=== PATIENT | female | born 1990 ===

== ENCOUNTER 2017-07-01 13:38 | Emergency (ER) | payer OTHER ==
[2017-07-01 13:38] VITALS: BMI 21.0
[2017-07-01 13:49] VITALS: BP 110/71; RESP 19; TEMP 97; O2SAT 100
--- NOTE | 2017-07-01 14:09 | ED PDOC ---
HPI: Female Pain Time Seen by Provider: 07/01/17 13:54 Chief Complaint (Nursing): Female Genitourinary Chief Complaint (Provider): Dysuria History Per: Patient History/Exam Limitations: no limitations Onset/Duration Of Symptoms: Days (x3) Current Symptoms Are (Timing): Still Present Associated Symptoms: denies: Fever, Chills, Nausea, Vomiting, Back Pain Additional Complaint(s): 27 year old female currently 22 weeks presents to the emergency department with dysuria and frequency x 3 days ago. Patient denies any back pain , abdominal pain, vaginal bleeding, fever, vomiting, diarrhea, or nausea. OB: Dr Cox Past Medical History Reviewed: Historical Data, Nursing Documentation, Vital Signs Vital Signs: Last Vital Signs Temp 97 F L 07/01/17 13:46 Pulse 98 H 07/01/17 13:46 Resp 19 07/01/17 13:46 BP 110/71 07/01/17 13:46 Pulse Ox 100 07/01/17 13:46 - Medical History PMH: No Chronic Diseases - Surgical History Surgical History: Cholecystectomy - Family History Family History: States: No Known Family Hx - Living Arrangements Living Arrangements: With Family - Social History Current smoker - smoking cessation education provided: No Alcohol: None Drugs: Denies - Home Medications Home Medications: Ambulatory Orders Medication Instructions Recorded Doxylamine/Pyridoxine HCl (B6) 1 each PO BID PRN #10 tablet. 04/02/17 [Raman Olson 10-10 mg Tablet] Nitrofurantoin Macrocrystals 100 mg PO BID #14 cap 07/01/17 [Macrobid] - Allergies Allergies/Adverse Reactions: Allergies Allergy/AdvReac Type Severity Reaction Status Date / Time No Known Allergies Allergy Verified 04/02/17 19:10 Review of Systems ROS Statement: Except As Marked, All Systems Reviewed And Found Negative Constitutional: Negative for: Fever, Chills Gastrointestinal: Negative for: Nausea, Vomiting, Abdominal Pain, Diarrhea Genitourinary Female: Positive for: Dysuria, Frequency. Negative for: Incontinence, Hematuria, Vaginal Discharge, Vaginal Bleeding Musculoskeletal: Negative for: Back Pain Physical Exam - Reviewed Nursing Documentation Reviewed: Yes Vital Signs Reviewed: Yes - Physical Exam Appears: Positive for: Well, Non-toxic, No Acute Distress Head Exam: Positive for: ATRAUMATIC, NORMAL INSPECTION, NORMOCEPHALIC Skin: Positive for: Normal Color, Warm Eye Exam: Positive for: Normal appearance, EOMI, PERRL Cardiovascular/Chest: Positive for: Regular Rate, Rhythm Respiratory: Positive for: Normal Breath Sounds. Negative for: Respiratory Distress Gastrointestinal/Abdominal: Positive for: Soft, Other (gravid nontender abdomen) . Negative for: Tenderness Back: Positive for: Normal Inspection. Negative for: L CVA Tenderness, R CVA Tenderness Extremity: Positive for: Normal ROM. Negative for: Deformity, Swelling Neurologic/Psych: Positive for: Alert, Oriented - Laboratory Results Urine POC: Positive Urine dip results: Positive for: Leukocyte Esterase (moderate), Nitrate ( positive). Negative for: Blood, Ketones, Glucose, Bilirubin, Protein - ECG O2 Sat by Pulse Oximetry: 100 (RA) Pulse Ox Interpretation: Normal Medical Decision Making Medical Decision Making: Time: 14:05 Impression: 27 year old female with dysuria Initial Plan: --Urine Dip --Urine Culture Rx macrobid given. Advised fluids, tylenol prn and follow up with OB in 2-3 days. Scribe Attestation: Documented by Emily Sumner, acting as a scribe for April Randolph PA-C Provider Scribe Attestation: All medical record entries made by the Scribe were at my direction and personally dictated by me. I have reviewed the chart and agree that the record accurately reflects my personal performance of the history, physical exam, medical decision making, and the department course for this patient. I have also personally directed, reviewed, and agree with the discharge instructions and disposition. Disposition - Clinical Impression Clinical Impression: Urinary tract infection - Patient ED Disposition Is Patient to be Admitted: No Counseled Patient/Family Regarding: Studies Performed, Diagnosis, Need For Followup, Rx Given - Disposition Referrals: Juan Cox MD [Medical Doctor] - Disposition: Routine/Home Disposition Time: 14:24 Condition: STABLE Additional Instructions: TAKE RX MEDS DIRECTED. DRINK PLENTY OF FLUIDS. TYLENOL NEEDED FOR PAIN. FOLLOW UP WITH OB IN 2-3 DAYS. Prescriptions: Nitrofurantoin Macrocrystals [Macrobid] 100 mg PO BID #14 cap Instructions: Urinary Tract Infections in Adults Forms: [facility] (American)
[2017-07-01 14:32] VITALS: PULSE 76
== END 2017-07-01 14:31 | disposition home or self-care (01) ==
LOC: H.ER 13:38 → SUPCPDRO 13:38 → H.ER 14:31
DX: N39.0 Urinary tract infection, site not specified (principal)

== ENCOUNTER 2017-09-22 16:16 | Emergency (ER) | payer OTHER ==
[2017-09-22 17:02] VITALS: BMI 24.5
[2017-09-22] MEDS: Lactated Ringer's 1,000 ML IV SCH ×2 (17:10→18:21)
--- NOTE | 2017-09-22 17:39 | OBHP ---
Datetime: 09/22/2017 17:12 IP Adm Impression: , intrauterine ; No Active Labor; Intact Membranes IP Admit Plan: Observation/Evaluation Admit Comment, IP Provider: 27 yo with IUP at 35.1 weeks, EDC 11/01/17, presented to [facility] wit h complaint of ctx x2 days. States contractions have been on and off for two days, feels "stomach tig htening." Denies loss of fluid, denies vag bleeding. Reports good FM. She had intercourse last night and CTX pain was worse. PNC: [facility] in [place]. GBS+ bacteruria. - only copies of lab work provided/20w sono as well - chart rev'd OBhx: 2 prior full term (40 wk) deliveries Denies past medical hx Surg hx: cholecystectomy in 2010 Soc hx: denies tobacco alcohol drug use Fam hx: htn on mother's side, dm2 on father's side Allergies: nkda Meds: PNV SVE: FT, long, high was aldo q3-4 min on arrival to [facility] but at this time ctx have dissipated bedside sono: cephalic presentation Assessment: 27 yo , IUP at 35+ weeks; labor unlikely. Plan: IV hydration, monitor contractions, send urinalysis Pt seen/discussed w/ Dr. Jet villarreal OB Hospitalist on-call : with PGY1, I saw an examined this patient Agree with note MAHNDO Abdomen - PN: Normal Back - PN: Normal Neurologic - PN: Normal HEENT - PN: Normal General - PN: Normal Presentation-Admit: Vertex FHR - Baseline A Provider: 150 Membranes, Provider: Intact Contraction Comments Provider: + Comments, ACOG Physical Exam: SVE: FT, long, high bedside sono: cephalic presentation Pool Provider: Negative EGA AdmitDate IP: 35.1 Vital Signs Provider: Reviewed; Within Normal Limits IP Chief Complaint: Uterine contractions NICHD Variability Prov Fetus A: Moderate 6-25bpm NICHD Accel Fetus A IP Provider: [id number] FHR Category Provider Fetus A: Category I Dilatation, Provider: FT Effacement, Provider: long Station, Provider: Genitourinary Exam: Normal
[2017-09-22 17:42] LABS: URINE BACTERIA RARE (<OCC); URINE BILIRUBIN NEGATIVE (NEGATIVE); URINE BLOOD NEGATIVE (NEGATIVE); URINE CLARITY SLIGHTY-CLOUDY (Clear); URINE COLOR YELLOW (YELLOW); URINE GLUCOSE (UA) 50 mg/dL (Normal); URINE LEUKOCYTE ESTERASE NEG Leu/uL (Negative); URINE PROTEIN NEGATIVE (NEGATIVE); URINE UROBILINOGEN 0.2-1.0 mg/dL (0.2-1.0)
[2017-09-22] MEDS ORDERED: Betamethasone Soluspan 30 mg/5mL Inj Susp IM ONE (19:00)
--- NOTE | 2017-09-22 19:03 | OBHP ---
Datetime: 09/22/2017 18:48 IP Adm Impression: , intrauterine ; No Active Labor; Intact Membranes IP Admit Plan: Observation/Evaluation Admit Comment, IP Provider: Pt's EDC 11/01/17 by initial external assessment; confirmed by u/s at 21 weeks; pt is currently 34 weeks 2 days. ctx still present sve unchanged, still FT, thick, high will give 1 dose terbutaline 0.25mg SQ and 1 dose betamethasone 12 mg IM will need second dose betamethasone in 24 hrs continue to monitor, re-eval pt seen/discussed with dr felecia [email or web address] OB Hospitalist on-call... She still feels CTX. UA neg. SVE no change...threatened PTL. will give one dose Terbutaline. Betamethasone today and another tmrw. EGA AdmitDate IP: 35.0 IP Chief Complaint: Uterine contractions Dilatation, Provider: FT Effacement, Provider: keysha Station, Provider:
[2017-09-23 07:05] VITALS: BP 126/70; PULSE 104; RESP 18; TEMP 98.1; O2SAT 99
[2017-09-23] MEDS ORDERED: Betamethasone Soluspan 30 mg/5mL Inj Susp IM ONE (20:09)
== END 2017-09-22 19:50 | disposition home or self-care (01) ==
LOC: H.EROB2 16:16
DX: O47.03 False labor before 37 completed weeks of gestation, third trimester (principal); Z3A.35 35 weeks gestation of pregnancy; O26.93 Pregnancy related conditions, unspecified, third trimester; R10.2 Pelvic and perineal pain
CPT/HCPCS: 81003; 96372; 99283; J0702; J3105; J7120

== ENCOUNTER 2017-09-23 19:56 | Emergency (ER) | payer OTHER ==
[2017-09-22 17:02] VITALS: BMI 24.5
[2017-09-23] MEDS ORDERED: Betamethasone Soluspan 30 mg/5mL Inj Susp IM ONE (20:39)
--- NOTE | 2017-09-23 20:57 | OBHP ---
Datetime: 09/23/2017 20:46 IP Adm Impression: , intrauterine IP Admit Plan: Observation/Evaluation; Discharge home Admit Comment, IP Provider: Pt is a with IUP 35wks (JYOTHI 11/01) presenting for second dose of Be tamethasone. Pt presented to [facility] yesterday with contractions, cervix was FT at the time, and receive d one dose of Betamethasone at that time. Denies having ctx, vb, lof and reports + fm. PNC: Dr. Cox OB: 2 prior , both full term, no complications PMHX: denies PSHx: Jon, 2010 Med: PNV Allergies: NKDA Social: Denies habits x3 Maternal vital signs stable General: NAD Cardio: RRR, no murmurs Resp: CTABL Abdomen: Gravid, NT Ext: No edema A: IUP 35 weeks with early signs of labor yesterday, here to receive 2nd dose of Betamethasone. FH R tracings reasuring. P: Administer 12mg Betmethasone IM. Continous monitoring. Discussed case with Dr. Mile Patrick, PGY1 OB Hospitalist on-call. I saw and examined this patient after receviing sign out from Dr Mile palacios.Betamethason and discharge home IP Hx Assessment: The History has been Reviewed and is Current EGA AdmitDate IP: 34.3 Vital Signs Provider: Reviewed IP Chief Complaint: Other FHR Category Provider Fetus A: Category I
[2017-09-24 03:46] VITALS: BP 80/44; PULSE 86
== END 2017-09-23 21:35 | disposition home or self-care (01) ==
LOC: H.EROB2 19:56
DX: O26.93 Pregnancy related conditions, unspecified, third trimester (principal); R10.2 Pelvic and perineal pain; Z3A.35 35 weeks gestation of pregnancy; O47.03 False labor before 37 completed weeks of gestation, third trimester

== ENCOUNTER 2017-10-27 02:55 | Inpatient (IN) | payer OTHER ==
[2017-10-27 03:12] VITALS: BMI 25.2
[2017-10-27] MEDS ORDERED: Penicillin G Potassium 5 MU in Sodium Chloride 0.9% 50 ML IVPB ONE (03:13)
[2017-10-27] MEDS: Lactated Ringer's 1,000 ML IV SCH ×2 (03:15→03:50)
[2017-10-27] MEDS ORDERED: Lactated Ringer's 1,000 ML IV SCH (03:15)
[2017-10-27] MEDS ORDERED: Oxytocin 30 units/LR 500ML 30 U/500 ML BAG IV ONE (03:16)
[2017-10-27 03:54] LABS: BASO # 0.1 K/uL (0.0-0.2); EOS # 0.1 K/uL (0.0-0.7); LYMPH # 2.2 K/uL (1.0-4.3); LYMPH % 31.2 % (20.0-40.0); MEAN CELL VOLUME 87.8 fl (81.0-99.0); MEAN CORPUSCULAR HEMOGLOBIN 29.6 pg (27.0-31.0); MEAN CORPUSCULAR HGB CONC 33.7 g/dL (33.0-37.0); MONO # 0.4 K/uL (0.0-0.8); MONO % 6.4 % (0.0-10.0); NEUT # 4.2 K/uL (1.8-7.0); NEUT % 60.4 % (50.0-75.0); NRBC % 0.1 % (0.0-0.0); RBC 3.73 Mil/uL (3.80-5.20); RED CELL DISTRIBUTION WIDTH 15.3 % (11.5-14.5); WHITE BLOOD COUNT 6.9 K/uL (4.8-10.8)
[2017-10-27] MEDS ORDERED: Fentanyl/Bupivacaine HCl 250 ML EPI ONE (04:37)
[2017-10-27] MEDS ORDERED: Oxytocin 10 Units/ml Inj ONE (05:50)
[2017-10-27] MEDS ORDERED: Oxycodone/Acetaminophen 5/325 mg Tab PO PRN (05:55)
[2017-10-27] MEDS ORDERED: Oxytocin 10 Units/ml Inj IM ONE (06:04)
--- NOTE | 2017-10-27 06:17 | OBDS ---
DELIVERY PERSONNEL Delivery Doctor: Walker Valerio MD Recovery Coach: [email or web address] Anesthesiologist: Dr. Knowles Resident: Dr. Hawk MATERNAL INFORMATION Delivery Anesthesia: Epidural Medications in Delivery: Pitocin 10 IM Placenta Cultured: No Maternal Complications: None Provider Comments: Uncomplicated spontaneous vaginal delivery of a viable female infant with BW of 3 010gms and scores of 9/9 delivered over an intact perineum. EBL - 200mls LABOR SUMMARY EDC: 11/01/2017 00:00 No. Babies in Womb: 1 Attempted: No Labor Anesthesia: Epidural LABOR INFORMATION Reason for Induction: Not Applicable Oxytocin: N/A Group B Beta Strep: Positive Antibiotics # of Doses: 1 Steroids Given: None Reason Steroids Not Administered: Not Applicable MEMBRANES Membranes Rupture Method: Spontaneous STAGES OF LABOR Stage 3 hrs: 0 Stage 3 min: 3 VAGINAL DELIVERY Episiotomy: None Laceration Extension: N/A Laceration Type: None Laceration Repair: Not Applicable Initial Vag Sponge Count: 5 Final Vag Sponge Count: 5 Initial Vag Sharps Count: 0 Final Vag Sharps Count: 0 Sponge Count Correct: N/A Sharps Count Correct: Yes Count Comment: MD confirmed count BABY A INFORMATION Delivery Date/Time: 10/27/2017 05:38 Method of Delivery: Vaginal Born in Route : No : N/A Forceps: N/A Vacuum Extraction: N/A Shoulder Dystocia : No SHOULDER DYSTOCIA BABY A Delivery Date/Time: 10/27/2017 05:38 PRESENTATION/POSITION BABY A Presentation: Cephalic PLACENTA INFORMATION BABY A Placenta Delivery Time : 10/27/2017 05:41 Placenta Method of Delivery: Spontaneous Placenta Status: Delivered SCORES BABY A Heart Rate 1 min: >100 bpm Resp Effort 1 min: Good Cry Reflex Irritability 1 min: Cough or Sneeze or Pulls Away Muscle Tone 1 min: Active Motion Color 1 min: Body [place], Extremities Blue Resuscitation Effort 1 min: N/A SCORE 1 MIN: 9 Heart Rate 5 min: >100 bpm Resp Effort 5 min: Good Cry Reflex Irritability 5 min: Cough or Sneeze or Pulls Away Muscle Tone 5 min: Active Motion Color 5 min: Body [place], Extremities Blue Resuscitation Effort 5 min: N/A SCORE 5 MIN: 9 INFORMATION BABY A Gestational Age at Delivery: 39.2 Gestational Status: Term Infant Outcome : Liveborn Infant Condition : Stable Infant Sex: Female IDENTIFICATION/MEDS BABY A ID Band Number: [id number] ID Band Location: Left Leg; Left Arm CORD INFORMATION BABY A Suction: Mouth; Nose ASSESSMENT BABY A Complications: None Physical Findings at Delivery: Within Normal Limits Respirations: Appears Normal Healthcare Administration Internship/ALS Called : No Transferred To: Remains with Mother
[2017-10-27 06:45] VITALS: O2SAT 100
[2017-10-28 07:24] LABS: BASO % 0.2 % (0.0-2.0); EOS # 0.1 K/uL (0.0-0.7); EOS % 1.1 % (0.0-4.0); HEMOGLOBIN 8.8 g/dL (12.0-16.0); LYMPH # 2.4 K/uL (1.0-4.3); LYMPH % 27.4 % (20.0-40.0); MEAN CELL VOLUME 89.8 fl (81.0-99.0); MEAN CORPUSCULAR HEMOGLOBIN 29.8 pg (27.0-31.0); MEAN CORPUSCULAR HGB CONC 33.2 g/dL (33.0-37.0); MEAN PLATELET VOLUME 11.1 fl (7.2-11.7); MONO # 0.6 K/uL (0.0-0.8); MONO % 6.8 % (0.0-10.0); NEUT # 5.6 K/uL (1.8-7.0); NEUT % 64.5 % (50.0-75.0); RBC 2.96 Mil/uL (3.80-5.20); RED CELL DISTRIBUTION WIDTH 15.6 % (11.5-14.5); WHITE BLOOD COUNT 8.7 K/uL (4.8-10.8)
--- NOTE | 2017-10-28 10:43 | OBPPN ---
Datetime: 10/28/2017 09:51 PP Pain Prov: Within normal limits PP Nausea Prov: Present PP Flatus Prov: Yes PP BM Prov: No PP Impression Prov: Normal progression PP Plan Prov: Continue present management PP Progress Note Prov: S: 27 y/o female s/p on 10/27/17 evaluated on PPD1. Pt was seen and examined at bedside this AM. No overnight events. Pt reports mild abdominal pain, but well contro lled with pain meds. Ambulating w/o lightheadedness or palpitations. Breast feeding (with formula sup plementation) with complaints of nipple soreness. Lochia is similar to menses volume. +Flatus/-BM. D enies fever/chills, diarrhea, nausea/vomiting, chest pain, dyspnea, and dizziness. O: VS: Stable overnight GEN: NAD Cardio: S1S2, no murmurs Lungs: clear breath sounds b/l, no wheezing Abdomen: BS+, appropriate tenderness to palpation. Uterus is firm and at the level of the umbilic us. EXT: No edema, calves nontender NEURO/PSYCH: AAOx3, no grossly focal deficits, preserved affect and mood. H/H (post ): 8.8/26.5 Assessment/Plan: 27 y/o female s/p on 10/27/17, doing well on PPD 1 . Asymptomatic ane crystal, start po iron today. Pt remains afebrile, tolerating pain with medication. Tolerating diet. Anti cipating d/c on 10/29. Pt agreeable to get TDAP. Continue with current management Encourage and ambulating OOB w/ caution Ibuprofen 600mg q6 and Percocet 1 tablet 5-325mg prn for pain for pain Colace daily Ferrous Sulfate 325mg BID daily TDAP ordered for tomorrow Lanolin ordered for Nipple Soreness ANEL PatrickY1 Attending Note: Pt was sen and examined with Resident and I agree with the above assessment. Chalo Valerio MD. Vital Signs Provider PP: Reviewed; Within Normal Limits
[2017-10-28] MEDS: Lansinoh for Breast Feeding Mothers TP PRN (16:10)
[2017-10-29] MEDS: Lansinoh for Breast Feeding Mothers TP PRN (08:18)
[2017-10-29] MEDS ORDERED: Tdap Vaccine 0.5 ml Vial (10-64 yrs) IM ONE (09:45)
--- NOTE | 2017-10-29 11:13 | OBDCSUM ---
Datetime: 10/29/2017 06:02 Discharged to, Provider: Home Follow up at, Provider: Dr Cox Disch Instr Activity: Normal activity Disch Instr Diet: Regular Discharge Instructions, Provider: Routine instructions given Discharge Diagnosis, Provider: Term Delivered Discharge Time: 10/29/2017 10:00 Follow up in weeks, Provider: 6 weeks Disch Referrals: None Contraception discussed, Prov: Yes Disch Activity Restrictions: No lifting; Minimize stair-climbing; No sexual activity; Nothing in vag dianna - [place], tampons, douche Discharge Comment, Provider: EGA: 39.2 weeks Diagnosis: RF: none DOL: 10/27/2017 at 05:38 NB: F : 9/9 Weight: 3010 g PP summary: No serious complications during PP. Lochia= menses, mild pain, controlled with medicat ions. Rubella Immune Blood type: O+ CBC pp: 8.8/32.7 Discharge Date: 10/29/2017 at 10 am Discharge Instructions: -encourage -Ibuprofen for pain PRN -Colace for constipation -Iron for anemia -Ambulate as tolerated -f/u NB visit and PP visit Contraception after Delivery: Undecided
--- NOTE | 2017-10-29 11:14 | OBPPN ---
Datetime: 10/29/2017 06:00 PP Pain Prov: Within normal limits PP Nausea Prov: Denies PP Flatus Prov: Yes PP BM Prov: Yes PP Breasts Prov: Not Done PP Heart Prov: Normal PP Lungs Prov: Normal PP Abdomen/Uterus Prov: Normal PP Lochia Prov: Not Done PP Vulva/Perineum Prov: Not Done PP CVA Tenderness Prov: Not Done PP Extremities Prov: Normal PP C/S Incision Prov: Not Applicable PP Progress Prov: Normal PP Impression Prov: Normal progression PP Plan Prov: Discharge PP Progress Note Prov: Patient seen and examined this morning at bedside. Mild abdominal pain but we ll controlled with pain medicines. Voiding w/o any difficulties, tolerating PO intake and reports goo d progression. Normal BM and passing gas per rectum. Denies chest pain, dyspnea, nausea , vomiting, and calf pain. VSS, afebrile Gen: awake, no acute distress Resp: cta b/l CV: normal S1S2, RRR Abd: soft, +BS, appropiated tenderness, firm fundus below umbilicus. Ext: no edema, no calf tenderness Neuro/psych: AAOx3, no gross deficits, preserved mood and affect A/P: 27 yo , s/p NVD on 10/27/17 doing well on PPD 2. -Normal progression -c/w pain management -Encourage ambulation and -Discharge home today -Tdap before d/c -Patient is aware and all the questions were answered [id number] PGY-[address] Peralta: I have evaluated the patient independently and I agree with the above IP PP Procedures Comments: Tdap Vital Signs Provider PP: Reviewed; Within Normal Limits
[2017-10-29 17:53] VITALS: BP 127/88; PULSE 66; RESP 20; TEMP 98.6
== END 2017-10-29 11:45 | disposition home or self-care (01) | DRG 373 ==
LOC: H.EROB2 02:55 → H.L&D 03:12 → H.OB/GYN 07:52
PROVIDERS: ADMIT Obstetrics & Gynecology; ATTEND Obstetrics & Gynecology
PROC: 10E0XZZ Delivery of Products of Conception, External Approach (ICD-10-PCS; principal; 2017-10-27)
PROC: 3E0234Z Introduction of Serum, Toxoid and Vaccine into Muscle, Percutaneous Approach (ICD-10-PCS; 2017-10-29)
DX: O99.02 Anemia complicating childbirth (principal); D64.9 Anemia, unspecified; Z37.0 Single live birth; Z3A.39 39 weeks gestation of pregnancy; Z23 Encounter for immunization